=== PATIENT | male | born 1960 | race African-American/Black ===

== ENCOUNTER 2017-08-11 09:16 | Emergency (ER) | payer OTHER ==
[~2017-08-11] VITALS: Ht 185.4 cm; Wt 98.9 kg
[2017-08-11 09:17] VITALS: BP 141/75
[2017-08-11] MEDS ORDERED: KETOROLAC 60 MG/2 ML VIAL IM ONE (10:05)
[2017-08-11] MEDS: KETOROLAC 30 MG/ML VIAL IM ONE (10:06)
[2017-08-11] MEDS: CYCLOBENZAPRINE 10 MG TAB PO ONE (10:06)
--- NOTE | 2017-08-11 10:09 | NUR ---
PATIENT PRESENTS TO ED WITH lower back pain exacerbation while putting shoes on today . PT STATES . DENIES N/V/D; SKIN IS PINK/WARM/DRY; AAOX4 WITH EVEN AND STEADY GAIT; LUNGS CLEAR BL; HR EVEN AND REGULAR; PT DENIES ANY FEVER, CP, SOB, OR COUGH AT THIS TIME; PATIENT STATES PAIN OF 10/10 AT THIS TIME; VSS; PATIENT POSITIONED FOR COMFORT ER MD MADE AWARE OF PT STATUS.
--- NOTE | 2017-08-11 10:26 | NUR ---
Patient discharged with v/s stable. Written and verbal after care instructions given and explained. Patient verbalized understanding. Wheel Chair Assisted with to car. All questions addressed prior to discharge. Advised to follow up with PMD.
[2017-08-11 10:27] VITALS: BP 142/88
--- NOTE | 2017-08-11 10:27 | NUR ---
pt stating he feels better and requesting dc---md spoke with pt and family member
== END 2017-08-11 10:26 | disposition home or self-care (01) ==
LOC: MED 09:16
DX: G89.29 Other chronic pain (principal); M54.5 Low back pain
CPT/HCPCS: 96372; 99283; J1885

== ENCOUNTER 2018-08-23 08:56 | Emergency (ER) | payer OTHER ==
[~2018-08-23] VITALS: Ht 185.4 cm; Wt 92.8 kg
[2018-08-23 09:00] VITALS: BP 123/81
--- NOTE | 2018-08-23 09:00 | NUR ---
PT AMB TO ER BED 7
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
--- NOTE | 2018-08-23 09:23 | NUR ---
Dr. Davalos evaluating patient at bedside.
--- NOTE | 2018-08-23 09:25 | NUR ---
DR WOOD AT BEDSIDE
[2018-08-23] MEDS ORDERED: MORPHINE SULFATE 4 MG/ML SYR IM ONE (09:30)
[2018-08-23] MEDS ORDERED: KETOROLAC 60 MG/2 ML VIAL IM ONE (09:30)
[2018-08-23] MEDS ORDERED: hydrOXYzine HCL 25 MG TAB PO ONE (09:30)
--- NOTE | 2018-08-23 10:01 | NUR ---
pts ride is waiting in lobby
[2018-08-23 10:05] VITALS: BP 120/82
--- NOTE | 2018-08-23 10:06 | NUR ---
Patient discharged with v/s stable. Written and verbal after care instructions given and explained. Patient alert, oriented and verbalized understanding of instructions. Ambulatory with steady gait. All questions addressed prior to discharge. ID band removed. Patient advised to follow up with PMD. Rx of voltaren, baclofen given. Patient educated on indication of medication including possible reaction and side effects. Opportunity to ask questions provided and answered.
== END 2018-08-23 10:06 | disposition home or self-care (01) ==
LOC: MED 08:56
DX: G89.29 Other chronic pain (principal); M54.5 Low back pain
CPT/HCPCS: 96372; 99283; J1885; J2270

== ENCOUNTER 2019-04-23 10:27 | Emergency (ER) | payer OTHER ==
[~2019-04-23] VITALS: Ht 185.4 cm; Wt 90.7 kg
[2019-04-23 10:30] VITALS: BP 153/92
--- NOTE | 2019-04-23 10:36 | NUR ---
PT TAKEN TO ER BED 11
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
[2019-04-23] MEDS ORDERED: KETOROLAC 60 MG/2 ML VIAL IM ONE (12:05)
--- NOTE | 2019-04-23 12:45 | NUR ---
PT TO XRAY VIA W/C
--- NOTE | 2019-04-23 13:23 | NUR ---
PT BACK FROM XRAY VIA W/C
[2019-04-23 14:24] VITALS: BP 147/82
== END 2019-04-23 13:41 | disposition home or self-care (01) ==
LOC: MED 10:27
DX: S43.402A Unspecified sprain of left shoulder joint, initial encounter (principal); S13.4XXA Sprain of ligaments of cervical spine, initial encounter; I10 Essential (primary) hypertension; V49.9XXA Car occupant (driver) (passenger) injured in unspecified traffic accident, initial encounter; Y93.89 Activity, other specified; Y92.89 Other specified places as the place of occurrence of the external cause; Y99.8 Other external cause status
CPT/HCPCS: 71045; 72050; 73030; 96372; 99284; J1885

== ENCOUNTER 2019-05-22 18:32 | Emergency (ER) | payer OTHER ==
[~2019-05-22] VITALS: Ht 185.4 cm; Wt 95.3 kg
[2019-05-22 19:02] VITALS: BP 153/90
--- NOTE | 2019-05-22 19:05 | NUR ---
TO LOBBY A/W BED AMBULATORY
[2019-05-22 20:20] LABS: APPEARANCE,URINE CLEAR (CLEAR); BILIRUBIN,URINE NEGATIVE (NEGATIVE); BLOOD, URINE 3+ (NEGATIVE); COLOR,URINE YELLOW (YELLOW); LEUKOCYTE ESTERASE ,URINE NEGATIVE (NEGATIVE); NITRITE, URINE NEGATIVE (NEGATIVE); PH,URINE 6.5 (5.0-9.0); UGLUCOSE NEGATIVE (NEGATIVE)
[2019-05-22 20:49] LABS: RBC,URINE TOO NUMEROUS TO COUN /HPF (0-5); WBC,URINE 0-5 /HPF (0-5)
--- NOTE | 2019-05-22 21:45 | NUR ---
59 Y/O MALE BLOOD IN HIS URINE WITH BACK PAIN STARTED AN HOUR AGO. PAIN IS AN 9/10 ACUTE PAIN RADIATING TO THE THE RIGHT LOWER BACK. DENIES N/V/D. PAIN UPON PALPATION. PATIENT STATES, " IT FEELS LIKE A 'PULLING' PAIN". ERMD MADE AWARE OF STATUS. SIDE RAILSX1. VSS. WILL CONTINUE TO MONITOR. PMH: HTN RX: AMLODIPINE; LOSARTAN
--- NOTE | 2019-05-22 21:45 | NUR ---
TO BED # 09 AMBULATORY
--- NOTE | 2019-05-22 22:44 | NUR ---
Dr. Sinclair examining patient.
[2019-05-22] MEDS ORDERED: KETOROLAC 60 MG/2 ML VIAL IM ONE ×2 (22:48→22:50)
[2019-05-23 01:10] VITALS: BP 153/90
== END 2019-05-23 01:10 | disposition home or self-care (01) ==
LOC: MED 18:32
DX: N23 Unspecified renal colic (principal); I10 Essential (primary) hypertension
CPT/HCPCS: 74176; 81001; 96372; 99284; J1885

== ENCOUNTER 2019-06-13 06:50 | Emergency (ER) | payer OTHER ==
[~2019-06-13] VITALS: Ht 185.4 cm; Wt 93.0 kg
[2019-06-13 06:55] VITALS: BP 117/84
--- NOTE | 2019-06-13 06:55 | NUR ---
TO BED # 12 AMBULATORY
[2019-06-13] MEDS ORDERED: ONDANSETRON 4 MG ODT PO ONE (07:15)
[2019-06-13] MEDS ORDERED: KETOROLAC 60 MG/2 ML VIAL IM ONE (07:15)
--- NOTE | 2019-06-13 07:26 | NUR ---
BIB SELF C/O LOWER BACK ABD PAIN S/P PASSING KIDNEY STONE YEST MORNING. SHARP ABD/ LOWER BACK PAIN /, NON RADIATING. DENIES BURNING/FREQUENCY/ PAIN DURING URINATION. LAST BM: 06/12/19. ABD SOUNDS NORMOACTIVE IN ALL QUADRANTS. DENIES ANY SOB/CHEST PAIN. AAOX3. NO CHANGES IN BLADDER/BOWEL ROUTINE SINCE PASSING OF STONE. PMH: HTN NKA
[2019-06-13 08:30] VITALS: BP 117/84
--- NOTE | 2019-06-13 08:30 | NUR ---
Patient discharged with v/s stable. Written and verbal after care instructions given and explained. Patient alert, oriented and verbalized understanding of instructions. Ambulatory with steady gait. All questions addressed prior to discharge. ID band removed. Patient advised to follow up with PMD. Rx of ZOFRAN, MOTRIN given. Patient educated on indication of medication including possible reaction and side effects. Opportunity to ask questions provided and answered.
[2019-06-13 08:32] LABS: APPEARANCE,URINE CLEAR (CLEAR); BILIRUBIN,URINE NEGATIVE (NEGATIVE); BLOOD, URINE 2+ (NEGATIVE); COLOR,URINE YELLOW (YELLOW); LEUKOCYTE ESTERASE ,URINE NEGATIVE (NEGATIVE); NITRITE, URINE NEGATIVE (NEGATIVE); UGLUCOSE NEGATIVE (NEGATIVE)
[2019-06-13 08:40] LABS: WBC,URINE 0-5 /HPF (0-5)
== END 2019-06-13 08:30 | disposition home or self-care (01) ==
LOC: MED 06:50
DX: R10.9 Unspecified abdominal pain (principal); I10 Essential (primary) hypertension
CPT/HCPCS: 81001; 87086; 96372; 99283; J1885; Q0162

== ENCOUNTER 2021-03-10 12:14 | Emergency (ER) | payer OTHER ==
[~2021-03-10] VITALS: Ht 182.9 cm; Wt 82.6 kg
[2021-03-10 12:20] VITALS: BP 122/70
[2021-03-10] MEDS ORDERED: KETOROLAC 60 MG/2 ML VIAL IM ONE (12:30)
--- NOTE | 2021-03-10 12:31 | NUR ---
DR. HANNAH BEDSIDE EVALUATING PT
--- NOTE | 2021-03-10 12:33 | NUR ---
61 Y/O MALE C/O SHOULDER PAIN 03/03 [id number]. DENIES TRAUMA/INJURY. DENIES FEVER/CHILLS. DENIES N/V. PT STATED PAIN IS NOW STARTING TO RADIATE UP TO HIS NECK. PT STATED HE FEELS A POP IN HIS SHOULDER WHEN HE MOVES IT, AND HAS DIMINISHED ROM NOW PMH: HTN NKA
[2021-03-10] MEDS ORDERED: IBUP-2213 PO (12:50)
[2021-03-10 13:00] VITALS: BP 122/70
== END 2021-03-10 13:00 | disposition home or self-care (01) ==
LOC: MED 12:14
DX: M25.511 Pain in right shoulder (principal); I10 Essential (primary) hypertension; Z98.890 Other specified postprocedural states
CPT/HCPCS: 96372; 99283; J1885

== ENCOUNTER 2022-05-10 08:03 | Emergency (ER) | payer OTHER ==
[~2022-05-10] VITALS: Ht 182.9 cm; Wt 92.1 kg
[~2022-05-10 08:03] MED LIST: IBUP-2213 PO
[2022-05-10 08:11] VITALS: BP 152/93
--- NOTE | 2022-05-10 08:19 | NUR ---
PT AMB TO BED 9.
[2022-05-10] MEDS ORDERED: KETOROLAC 60 MG/2 ML VIAL IM ONE (08:20)
--- NOTE | 2022-05-10 08:26 | NUR ---
sling applied to L shoulder. + cms
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
[2022-05-10] MEDS ORDERED: oxyCODONE/APAP 5/325 MG 1 TAB TAB PO ONE (09:10)
[2022-05-10] MEDS ORDERED: NAPR-1871 PO (09:37)
--- NOTE | 2022-05-10 09:39 | NUR ---
Patient discharged with v/s stable. Written and verbal after care instructions ABOUT SHOULDER ROM EXERCISES given and explained. Patient alert, oriented and verbalized understanding of instructions. Ambulatory with steady gait. All questions addressed prior to discharge. ID band removed. Patient advised to follow up with PMD. Rx of NAPROXEN given. Patient educated on indication of medication including possible reaction and side effects. Opportunity to ask questions provided and answered.
== END 2022-05-10 09:39 | disposition home or self-care (01) ==
LOC: MED 08:03
DX: M25.512 Pain in left shoulder (principal); I10 Essential (primary) hypertension; Z79.899 Other long term (current) drug therapy
CPT/HCPCS: 73030; 96372; 99283; J1885